=== PATIENT | male | born 1950 | race Caucasian/White ===

== ENCOUNTER 2024-12-26 10:02 | Emergency (ER) | payer BC, SELFPAY ==
[2024-12-26 10:08] VITALS: BP 180/87
--- NOTE | 2024-12-26 11:07 | ED.GENMED ---
History of Present Illness
General
Chief Complaint: Abdominal Symptoms
Source: patient and spouse
Exam Limitations: none
Time Seen by Provider: 12/26/24 10:41
Nursing documentation reviewed up to this point in time: agreed with
History of Present Illness
History of Present Illness:
Note:
CHIEF COMPLAINT(S)
Nausea, gas, and seasickness-like symptoms.
HISTORY OF PRESENT ILLNESS
The patient is a 74-year-old male who presented with complaints of intermittent nausea described as feeling 'seasick,' accompanied by episodes of gas. He reports no vomiting or diarrhea and states that his bowel movements have been normal, noting
having passed 'a couple of big ones' before the visit. The symptoms started around two months ago after a change in his dose of semaglutide (Ozempic), which he has been taking since May. He mentioned that he is currently on his third box, with
each box providing four doses. The patient denies any dizziness or chest pain but reports the nausea as persistent when it occurs. He suspects the symptoms might be related to semaglutide, as he has heard of similar experiences from others.
PAST MEDICAL AND SURGICAL HISTORY
The patient has a history of back surgery, likely performed at the L4-5 and S1 levels, around 2003 or 2004.
MEDICATIONS
The patient is currently taking semaglutide (Ozempic) and recently increased the dosage two months ago.
PHYSICAL EXAM
General: Alert, no acute distress.
Skin: Warm, dry.
Head: Normocephalic, atraumatic.
Neck: Supple, trachea midline.
Eyes, Ears, Nose, Mouth and Throat: Oral mucosa moist.
Cardiovascular: Normal peripheral perfusion, no edema.
Respiratory: Respirations are non-labored.
Gastrointestinal: Abdomen nondistended.
Back: Normal range of motion, normal alignment.
Musculoskeletal: Normal range of motion, normal strength.
Neurological: Alert and oriented to person, place, time, and situation, no focal neurological deficit observed.
Psychiatric: Cooperative, appropriate mood & affect.
PLAN
1. Assess for adverse effects of semaglutide (Ozempic).
2. Perform a computed tomography scan of the abdomen to evaluate pancreatic and gastrointestinal health.
3. Conduct blood tests to rule out any metabolic issues.
4. Administer ondansetron (Zofran) to address nausea symptoms.
5. Follow-up as necessary depending on test results or the persistence of symptoms.
DIFFERENTIAL DIAGNOSIS
The Differential Diagnosis includes, in no particular order and is not limited to:
1. Adverse effects from semaglutide (Ozempic).
2. Gastroenteritis.
3. Pancreatitis.
4. Gastric dysmotility.
5. Peptic ulcer disease.
6. Gastroesophageal reflux disease (GERD).
7. Vestibular dysfunction.
8. Cholecystitis.
9. Intestinal obstruction.
10. Medication-induced gastrointestinal symptoms.
CARE-UPDATE
12/26/24 - 15:02
Patient experiencing abdominal bloating, nausea, and vomiting, suspected to be secondary to Ozempic. Prescribed Zofran and Meclizine for symptom management. Follow-up with primary care recommended. Patient to continue physical therapy for vertigo,
with safety precautions reiterated.
EKG
My independent EKG interpretation is:
- Time of EKG: Not provided
- Rhythm: Normal sinus rhythm
- Heart Rate: 81 bpm
- HI Interval: Normal
- QRS Duration: Normal
- QT Interval: Normal
- [place]: Normal
- Abnormalities: None observed (No ischemia noted)
Disposition:
SUMMARY OF ENCOUNTER
The patient, a 74-year-old male, presented with intermittent nausea described as feeling 'seasick' along with episodes of gas. The symptoms began two months ago after an increase in the dosage of semaglutide (Ozempic). There are no reports of
vomiting or diarrhea, and bowel movements have been normal. The patient believes these symptoms may be related to semaglutide, having heard similar accounts from others. Observation and diagnostic tests were performed in the emergency department to
evaluate the symptoms and address potential adverse reactions to the medication.
DISPOSITION
The patient was discharged with instructions for follow-up care and medication management.
ASSESSMENT
The patients symptoms may potentially be an adverse effect from semaglutide, which could lead to gastrointestinal disturbances. Other possible conditions, such as gastroenteritis, pancreatitis, gastric dysmotility, and vestibular dysfunction, are
considered given the patients presentation and medical history.
EMERGENCY TREATMENTS ADMINISTERED
Ondansetron (Zofran) was administered to manage nausea symptoms in the emergency department.
PLAN
1. The patient is advised to monitor symptoms and avoid increasing the dose of semaglutide without consulting a healthcare professional.
2. Administration of ondansetron for nausea relief has been initiated.
3. Recommend continued physical therapy for management of vertigo symptoms.
4. Follow-up with the primary care provider is advised to reassess symptoms and medication tolerance. It was suggested that the patient might also benefit from reviewing medication management with a pharmacist or healthcare professional.
INDEPENDENT REVIEW OF LABS AND INTERPRETATION OF TESTS
My independent EKG interpretation is normal sinus rhythm with a heart rate of 81 bpm, with normal HI, QRS, and QT intervals. No abnormalities, such as ischemia, were noted.
MEDICATION RECONCILIATION
- Ondansetron (Zofran) was administered for nausea control.
- Semaglutide (Ozempic) was noted as a potential cause of symptoms; ongoing monitoring is recommended.
MEDICAL DECISION MAKING
1. Number and Complexity of Problems Addressed:
Chronic conditions affecting care include the patients history of back surgery. Differential diagnosis includes adverse effects from semaglutide, gastroenteritis, pancreatitis, gastric dysmotility, peptic ulcer disease, GERD, vestibular dysfunction,
cholecystitis, intestinal obstruction, and medication-induced gastrointestinal symptoms.
2. Data:
Category 1
- My independent EKG interpretation was unremarkable, showing normal sinus rhythm and no observed ischemia.
3. Risk:
Prescription medication management with ondansetron was initiated. The consideration of admission was reviewed, but the patient was deemed suitable for outpatient management based on positive response to treatment, stable vitals, and reliable
follow-up.
DIAGNOSIS
- Nausea and vomiting (R11)
- Adverse effects from medication (T50.468Z)
- Vertigo (R42)
Phy Exam
Physical Exam
Physical Exam:
.
Course
Orders/Labs/Results
Orders:
Orders
12/26/24 10:44
IV Insert/Care/Rem.- Treatment PRN
12/26/24 10:57
Electrocardiogram (*1) Urgent
Reason for Study: Vertigo / Dizzy
CT Abd/pelvis W Iv Cont Urgent
Comment:
Reason For Exam: epigastric pain, n/v
EKG- Treatment ONCE
12/26/24 11:06
Ondansetron Injectable [Zofran] 4 mg IV NOW STA
12/26/24 11:11
Complete Blood Count/With Diff Urgent
Comprehensive Metabolic Panel Urgent
Lipase Urgent
Troponin I Urgent
Urinalysis Reflex To Culture Urgent
Date Specimen was Collected: 12/26/24
Time Specimen was Collected: 10:46
Urine Microscopic Reflex Cult Urgent
Abnormal Lab Results
12/26/24
11:11
RBC 4.52 L 10^6/uL
(4.70-6.10)
MCH 32.5 H pg
(27.0-31.0)
Abs Immat Gran (auto) 0.2 H 10^3/uL
(0-0.05)
Absolute Neuts (auto) 8.0 H 10^3/uL
(1.4-6.5)
Absolute Lymphs (auto) 1.0 L 10^3/uL
(1.2-3.4)
Immature Gran % 1.6 H %
(0-0.5)
Neutrophils % 81.3 H %
(42.2-75.2)
Lymphocytes % 10.0 L %
(20.5-51.1)
Glucose 164 H mg/dl
(70-99)
Ur Occult Blood Reflex 2+ A
(Negative)
Urine Glucose 3+ A
(Negative)
Urine Albumin (Reflex) 1+ A
(Neg - Trace)
12/26/24 11:11
12/26/24 11:11
Vital Signs
Initial and Last Documented VS:
Initial Vital Signs
Temp Pulse Resp BP Pulse Ox
98.1 F 89 18 180/87 100
12/26/24 10:08 12/26/24 10:08 12/26/24 10:08 12/26/24 10:08 12/26/24 10:08
Last Documented Vital Signs
Temp Pulse Resp BP Pulse Ox
98.1 F 89 18 174/91 97
12/26/24 10:08 12/26/24 10:08 12/26/24 10:08 12/26/24 13:55 12/26/24 13:57
*Pulse Oximetry
SaO2: 100
Oxygen Mode of Delivery: Room air
Patient hypoxic: no
*Critical Care Note
Total Time (30-74mins, 75-104mins- exclusive of procedures): Not Applicable
ED Attending Note
-
Portions of this chart may have been created with voice recognition software.� Occasional wrong word or��sound alike� substitutions may have occurred due to the inherent limitations of voice recognition software.
Discharge Plan
Departure
Patient Disposition: Home (Routine Discharge)
Date of Disposition: 12/26/24
Time of Disposition: 14:57
Patient with high blood pressure during this ER visit?: Yes
Condition: Good
Discharge Problem:
Nausea and vomiting
Instructions: Nausea and Vomiting, Adult (DC), BLOOD PRESSURE
Prescriptions:
New
ondansetron 4 mg tablet,disintegrating
4 mg PO TID PRN (Reason: nausea and vomiting) 4 Days Qty: 10 0RF
meclizine 25 mg tablet
25 mg PO BID PRN (Reason: dizziness) Qty: 7 0RF
Referrals:
Kiarra Ramos DO [Family Provider] - Call in 1-3 days for appt
Interventions
Interventions:
*Risk Screen - Suicide Last Done: 12/26/24 10:08
*General Assessment Last Done: 12/26/24 10:08
*Neglect/Abuse Screening Last Done: 12/26/24 10:08
Discharge Date and Time
Print Language: SERBIAN
[2024-12-26] MEDS: ZOFRAN 4 MG IV (11:13)
[2024-12-26 11:26] LABS: Hematocrit 41.1 % (39.0-52.0); Hemoglobin 14.7 g/dL (13.0-18.0); Mean Corp Hgb Conc. 35.8 g/dL (33.0-37.0); Mean Corpuscular Volume 90.9 fL (80.0-94.0); Nucleated Red Blood Cells % 0 % (-); Platelet Count 217 10^3/uL (130-400); Red Cell Dist. Width 13.0 % (11.5-14.5)
[2024-12-26 11:35] LABS: Urine Character Clear (Clear)
[2024-12-26 11:47] LABS: ALT (SGPT) 21 U/L (0-50); AST (SGOT) 23 U/L (17-59); Albumin 4.6 g/dl (3.5-5.0); Alkaline Phosphatase 63 U/L (38-126); Blood Urea Nitrogen 14 mg/dl (9-20); Calcium 9.2 mg/dl (8.4-10.2); Carbon Dioxide 28 mmol/L (22-30); Chloride 101 mmol/L (98-107); Glucose 164 mg/dl (70-99); Lipase 71 U/L (23-300); Potassium 4.1 mmol/L (3.5-5.1); Sodium 137 mmol/L (135-145); Total Protein 7.2 g/dl (6.3-8.2); eGFR > 60.00
[2024-12-26 11:53] LABS: Urine Red Blood Cell 0-2 /HPF (0-2); Urine Squamous Cell 0-2 /LPF (Few); Urine White Cell 0-2 /HPF (0-5)
[2024-12-26 11:57] LABS: Troponin I < 0.012 ng/ml
[2024-12-26 13:55] VITALS: BP 174/91
[2024-12-26 15:39] VITALS: BP 145/65
== END 2024-12-26 15:39 | disposition home or self-care (01) ==
LOC: EMR 10:02
PROVIDERS: EMERGENCY PHYSICIAN Emergency Medicine; FAMILY PHYSICIAN Family Medicine
DX: R11.2 Nausea with vomiting, unspecified (principal); I49.8 Other specified cardiac arrhythmias; N40.0 Benign prostatic hyperplasia without lower urinary tract symptoms
CPT/HCPCS: 99284; 96374; 74177; 80053; 81003; 81015; 83690; 84484; 85025; 93005; Q9967

== ENCOUNTER → 2025-03-08 07:02 | Outpatient (REF) | payer BC, SELFPAY | LOC: RAD 07:02 | PROVIDERS: ATTENDING PHYSICIAN Student in an Organized Health Care Education/Training Program; FAMILY PHYSICIAN Family Medicine | DX: R42 Dizziness and giddiness (principal) | CPT/HCPCS: 70496; 70498; Q9967 ==

== ENCOUNTER → 2025-04-21 09:45 | Outpatient (REF) | payer OTHER, SELFPAY | LOC: RAD 09:45 | PROVIDERS: ATTENDING PHYSICIAN Surgery Vascular Surgery; FAMILY PHYSICIAN Family Medicine | DX: I65.21 Occlusion and stenosis of right carotid artery (principal) | CPT/HCPCS: 93880 ==